=== PATIENT | female | born 2005 | race Caucasian/White ===

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

== ENCOUNTER 2025-02-07 18:48 | Emergency (ER) | payer BC, MEDICAID, SELFPAY ==
[2025-02-07 18:49] VITALS: BP 147/74; PULSE 99; RESP 16; TEMP 36.7; O2SAT 99
[2025-02-07 19:34] VITALS: BP 137/77; PULSE 95; RESP 18; TEMP 36.6; O2SAT 100
--- NOTE | 2025-02-07 19:38 | ED_ITS ---
HPI - 2 General: Chief complaint: Vaginal Bleeding Stated complaint: 11 Wks Preg Bleeding Time Seen by Provider: 02/07/25 18:49 Source: patient Mode of arrival: ambulatory Limitations: no limitations History of Present Illness: 19-year-old female states she believes s he is roughly 10 to 11 weeks states she is not really sure she has not seen an OB. She states that today she has had some vaginal bleeding states she did pass a clot earlier and the bleeding is since improved denies any heavy bleeding currently she denies any pain denies any fever. Associated symptoms: Deny abdominal pain, dysuria, headache(s), nausea or vomiting Related Data Previous Rx's ?Medication ?Instructions ?Recorded levothyroxine 200 mcg tablet 200 mcg PO DAILY #30 tabs 05/19/24 cholecalciferol (vitamin D3) 125 5,000 unit PO DAILY # 30 caps 05/20/24 mcg (5,000 unit) capsule Allergies Allergy/AdvReac Type Severity Reaction Status Date / Time influenza virus vaccine ts Allergy Unknown Verified 05/16/24 15:45 [id number] (36 mos,up) (From [employer]) Review of Systems 2 Const: Denies: fever(s), chills, body aches or change in appetite ENMT: Denies: throat pain or dental pain Card: Denies: chest pain Resp: Denies: dyspnea GI: Denies: abdominal pain, nausea, vomiting or diarrhea : Reports: vaginal bleeding; Denies: dysuria Musc: Denies: neck pain or back pain Skin/Breast: Denies: rash Neuro: Denies: headache(s) PFSH ED 2 PFSH: Medical History (Updated 02/07/25 @ 21:44 by Byron Meyer MD) BMI (body mass index) pediatric, > 99% for age, obese child, tertiary care intervention Surgical History No history of previous surgery Family History Other Diabetes Hypertension Denies family history of Dementia Chronic kidney disease (CKD) Bleeding disorder Lung disease Cancer Stroke Social History Smoking and tobacco/nicotine status: never used tobacco/nicotine Second hand smoke exposure: No Alcohol intake: never Substance/Drug Use: never Adopted: No Highest education level completed: 12th Grade, No Diploma Pets and animals: Yes Do you think of yourself as: Straight/Heterosexual Current gender identity: Female Female Reproductive History: Spontaneous abortions: No Physical Exam 2 Const: COMMON NORMALS: no acute distress, patient oriented x3 and healthy appearing HENMT: COMMON NORMALS: normocephalic and atraumatic HEAD & SCALP: n ormocephalic and atraumatic Eye: COMMON NORMALS: conjunctivae normal CONJUNCTIVA: Yes conjunctivae normal Neck/C-Spine: COMMON NORMALS: full ROM and supple Chest: COMMONS NORMALS: normal inspection of the chest Resp: COMMON NORMALS: normal respiratory effort Cardio: COMMON NORMALS: regular rate, regular rhythm and No murmurs present (Cardio) RATE: regular rate RHYTHM: regular rhythm GI: COMMON NORMALS: Normal to inspection, nondistended, normoactive bowel sounds present, Soft to palpation, non-tender and no masses PALPATION: Yes Soft to palpation Extremity: COMMON NORMALS: normal to inspection and full ROM Neuro: COMMON NORMALS: patient oriented x3, moves all extremities and no focal motor deficits Psych: COMMON NORMALS: mental status grossly normal, Normal thought process present and cooperative THOUGHT PROCESS: Normal thought process present Skin: COMMON NORMALS: no rashes or lesions noted and no wounds GENERAL SKIN EXAM: no rashes or lesions noted Course 2 Vital Signs: Vital signs: Vital Signs Temperature 97.8 F 02/07/25 19:34 Pulse Rate 98 02/07/25 21:35 Respiratory Rate 20 H 02/07/25 21:35 Blood Pressure 163/96 02/07/25 21:35 Pulse Oximetry 100 02/07/25 21:35 Oxygen Delivery Me thod Room Air 02/07/25 21:35 MDM - OB/Uterine Contractions Medical Decision Making Patient presents here with threatened miscarriage or likely ongoing miscarriage. She has no signs of ectopic inform her she needs to follow-up in 2 to 3 days with [facility]LL [facility] WORK[facility] we will put a case management referral and she needs a repeat quantitative she is return to the ER if she has any increased pain or bleeding she understands agrees to plan Medical Records I reviewed the patient's medical records. Lab Data I reviewed the patient's lab results. 02/07/25 20:03 06/17/25 20:03 Laboratory Results WBC 9.85 10^3/uL (4.5-13.0) 02/07/25 20:03 RBC 5.13 10^6/uL (3.85-5.65) 02/07/25 20:03 Hgb 12.10 g/dL (12.4-14.8) L 02/07/25 20:03 Hct 39.3 % (36-47) 02/07/25 20:03 MCV 76.6 fl (85-98) L 02/07/25 20:03 MCH 23.6 pg (27-33) L 02/07/25 20:03 MCHC 30.8 g/dL (30-55) 02/07/25 20:03 RDW 15.6 % (12.1-15.1) H 02/07/25 20:03 Plt Count 251 10^3/cmm (157-399) 02/07/25 20: MPV 11.6 fL (7.4-10.4) H 02/07/25 20:03 Neut % (Auto) 64.6 % 02/07/25 20:03 Lymph % (Auto) 28.7 % 02/07/25 20:03 [place] % (Auto) 5.6 % 02/07/25 20:03 Eos % (Auto) 0.4 % 02/07/25 20:03 Baso % (Auto) 0.3 % 02/07/25 20:03 Neut # (Auto) 6.36 10^3/uL (1.8-8.0) 02/07/25 20:03 Lymph # (Auto) 2.8 10^3/uL (1.5-6.5) 02/07/25 20:03 [place] # (Auto) 0.6 10^3/uL (0.2-0.9) 02/07/25 20:03 Eos # (Auto) 0.0 10^3/uL (0.0-0.8) 02/07/25 20:03 Baso # (Auto) 0.0 10^3/uL (0.0-0.1) 02/07/25 20:03 Nucleated RBC % (auto) 0 % 02/07/25 20: Nucleated RBCs # 0.0 /100WBC 02/07/25 20:03 Sodium 136 mmol/L (136-145) 02/07/25 20:03 Potassium 3.9 mmol/L (3.5-5.1) 02/07/25 20:03 Chloride 103 mmol/L (98-107) 02/07/25 20:03 Carbon Dioxide 19 mmol/L (22-29) L 02/07/25 20:03 Anion Gap 17.9 (5-19) 02/07/25 20:03 BUN 13 mg/dL (6-20) 02/07/25 20:03 Creatinine 0.6 mg/dL (0.5-0.9) 02/07/25 20:03 GFR Calculation 128.8 mL/min (90-130) 02/07/25 20:03 Glucose 86 mg/dL (65-115) 02/07/25 20:03 Calculated Osmolality 281 mOsm/kg (285-295) L 02/07/25 20:03 Calcium 10.1 mg/dL (8.5-10.5) 02/07/25 20:03 Total Bilirubin 0.2 mg/dL (0.15-1.2) 02/07/25 20:03 AST 19 U/L (0-32) 02/07/25 20:03 ALT 21 U/L (0-33) 02/07/25 20:03 Alkaline Phosphatase 75 U/L (35-105) 02/07/25 20:03 Total Protein 7.9 g/dL (6.6-8.7) 02/07/25 20:03 Albumin 3.9 g/dL (3.5-5.2) 02/07/25 20:03 Globulin 4.0 g/dL (1.3-4.6) 02/07/25 20:03 Ser , Semi-Qnt 4873.00 mIU/mL 02/07/25 20:03 Blood Type O Negative 02/07/25 20:03 Rho(D) Type Rh negative 02/07/25 20:03 Antibody Screen Negative 02/07/25 20:03 All radiology interpretation(s) finalized by discharge Discharge Plan Discharge Patient Disposition: Home Clinical Impression: Threatened miscarriage Condition: Stable Prescriptions: No Action levothyroxine 200 mcg tablet 200 mcg PO DAILY Qty: 30 2RF Rx Instructions: only this dose cholecalciferol (vitamin D3) 125 mcg (5,000 unit) capsule 5,000 unit PO DAILY Qty: 30 5RF Discharge Orders: Discharge ED (Routine); Ordered 02/07/25 Ordered By: Byron Meyer Referrals: Sky Castillo, [facility] [Primary Care Provider, Family Practice] Francisco Perkins MD [Physician, [employer]LL TESTBOARD WORKER] - 1-3 days Discharge Diet: Advance as tolerated Discharge Activity: Resume usual activity Patient Instructions: Threatened Miscarriage (ED) Print Language: Yoruba Coding Level of Care Code ED Hub Cutter Apprentice for Shayna Nina
[2025-02-07 20:14] LABS: Basophils % 0.3 %; Eosinophils % 0.4 %; Hematocrit 39.3 % (36-47); Lymphocytes # 2.8 10^3/uL (1.5-6.5); Lymphocytes % 28.7 %; Mean Corpuscular HGB Conc 30.8 g/dL (30-55); Mean Corpuscular Hemoglobin 23.6 pg (27-33); Mean Corpuscular Volume 76.6 fl (85-98); Mean Platelet Volume 11.6 fL (7.4-10.4); Monocytes # 0.6 10^3/uL (0.2-0.9); Monocytes % 5.6 %; Neutrophils # 6.36 10^3/uL (1.8-8.0); Neutrophils % 64.6 %; Nucleated Red Blood Cells % 0 %; Platelet Count 251 10^3/cmm (157-399); Red Blood Count 5.13 10^6/uL (3.85-5.65); Red Cell Distribution Width 15.6 % (12.1-15.1); White Blood Count 9.85 10^3/uL (4.5-13.0)
--- NOTE | 2025-02-07 20:32 | USR_ITS ---
PROCEDURE INFORMATION: Exam: US First Trimester, Transabdominal and US , Transvaginal Exam date and time: 02/07/2025 8:52 PM Age: 19 years old Clinical indication: Lmp or gestational age (in weeks): N/a; Antepartum complications; Bleeding; ; G1-p0 morbidly obese patient 5ft 4 in 280 lbs presenting with spotting today, positive quant hcg; Additional info: Threatened miscarriage LABS AND CLINICAL REPORTS: Choriogonadotropin in serum (Serum HCG): 4873 mIU/mL Last menstrual period start date: Unknown TECHNIQUE: Imaging protocol: Real-time transabdominal obstetrical ultrasound of the maternal pelvis and a first trimester , less than 14 weeks 0 days, with image documentation. Transvaginal imaging was used for better evaluation of the fetus, adnexa, and/or cervix. COMPARISON: [place] liver [id number] 04/03/2020 7:50 AM FINDINGS: GESTATION: There is an irregular intrauterine gestational sac with no evidence of yolk sac or pole. Sac measurements give a gestational age of 5 weeks 6 days. No evidence of subchorionic hemorrhage. BIOMETRY: Gestational age (AUA): Not applicable Mean sac diameter: 1.05 cm. EGA (MSD) is 5 w 6 d MATERNAL: Uterus: Uterus measures 7.97 cm x 5.47 cm x 4.23 cm. Cervix: Unremarkable. Endocervical canal is closed. Right ovary/adnexa: Right ovary measures 1.9 cm x 2.2 cm x 1.6 cm. Right ovarian volume is 3.5 mL. Left ovary/adnexa: Left ovary measures 2.1 cm x 1.3 cm x 2.1 cm. Left ovarian volume is 3.1 mL. Intraperitoneal space: No intraperitoneal free fluid. US/US OB <= 14 weeks fetus [id number] IMPRESSION: Intrauterine sac noted at a gestational age of 5 weeks 6 days. No pole noted at this time. Short-term monitoring with beta HCG and serial ultrasound exams may be needed to rule out blighted ovum.
[2025-02-07 20:41] LABS: Alanine Aminotransferase 21 U/L (0-33); Albumin Level 3.9 g/dL (3.5-5.2); Alkaline Phosphatase 75 U/L (35-105); Anion Gap 17.9 (5-19); Aspartate Amino Transferase 19 U/L (0-32); Blood Urea Nitrogen 13 mg/dL (6-20); Calcium 10.1 mg/dL (8.5-10.5); Carbon Dioxide 19 mmol/L (22-29); Chloride 103 mmol/L (98-107); Creatinine Clr Calc Pharmacy 199.0871; Glomerular Filtration Rate 128.8 mL/min (90-130); Glucose 86 mg/dL (65-115); Osmolality Calculated 281 mOsm/kg (285-295); Potassium 3.9 mmol/L (3.5-5.1); Sodium 136 mmol/L (136-145); Total Bilirubin 0.2 mg/dL (0.15-1.2); Total Protein 7.9 g/dL (6.6-8.7)
[2025-02-07 21:35] VITALS: BP 163/96; PULSE 98; RESP 20; O2SAT 100
[2025-02-07 22:03] VITALS: BP 168/90; PULSE 94; O2SAT 98
--- NOTE | 2025-02-09 07:25 | DCPLANNER ---
messaged [facility] for er f/u
== END 2025-02-07 22:04 | disposition home or self-care (01) ==
PROVIDERS: Emergency Provider Emergency Medicine; PCP Nurse Practitioner
DX: O20.0 Threatened abortion (principal); Z3A.11 11 weeks gestation of pregnancy
CPT/HCPCS: 36415; 76801; 80053; 84702; 85025; 86850; 86900; 99284

== ENCOUNTER → 2025-02-10 13:50 | Outpatient (BNVA) | payer BC, MEDICAID, SELFPAY | PROVIDERS: PCP Nurse Practitioner; Visit Provider Nurse Practitioner Women's Health | DX: O20.0 Threatened abortion (principal) | CPT/HCPCS: 84315; 84702; 85025; 86850; 87086; 87491; 87591; 87661 ==

== ENCOUNTER → 2025-02-16 08:24 | Outpatient (BNVA) | payer BC, MEDICAID, SELFPAY | PROVIDERS: PCP Nurse Practitioner; Visit Provider Nurse Practitioner Women's Health | DX: O03.4 Incomplete spontaneous abortion without complication (principal) | CPT/HCPCS: 84702 ==

== ENCOUNTER → 2025-03-08 13:59 | Outpatient (BNVA) | payer BC, MEDICAID, SELFPAY | PROVIDERS: PCP Nurse Practitioner; Visit Provider Nurse Practitioner Women's Health | DX: O03.9 Complete or unspecified spontaneous abortion without complication (principal) | CPT/HCPCS: 84702 ==